=== PATIENT | male | born 1965 | race American Indian/Alaskan Native ===

== ENCOUNTER → 2019-08-19 | Outpatient (CLI) | payer BC | END | disposition home or self-care (01) | LOC: SLR 11:00 | PROVIDERS: ATTEND Internal Medicine | DX: G47.33 Obstructive sleep apnea (adult) (pediatric) (principal) | CPT/HCPCS: 95810 ==

== ENCOUNTER 2019-09-07 11:00 | Outpatient (CLI) | payer BC | END 2019-09-07 11:01 | disposition home or self-care (01) | LOC: SLR 11:00 | PROVIDERS: ATTEND Internal Medicine | DX: G47.33 Obstructive sleep apnea (adult) (pediatric) (principal); R40.0 Somnolence | CPT/HCPCS: 95811 ==

== ENCOUNTER 2019-10-28 07:13 | Day surgery (SDC) | payer BC ==
--- NOTE | 2019-10-28 08:20 | Anesthesia Day of Surgery ---
Anesthesia Day of Surgery - Day of Surgery Patient Examined: Yes Patient H&P Reviewed: Yes Patient is NPO: Yes
--- NOTE | 2019-10-28 08:20 | Anesthesia Consultation ---
Anesthesia Consult and Med Hx Date of service: 10/28/19 - Airway Anesthetic Teeth Evaluation: Good ROM Head & Neck: Adequate Mental/Hyoid Distance: Adequate Mallampati Class: Class III - Pre-Operative Health Status ASA Pre-Surgery Classification: ASA3 Proposed Anesthetic Plan: MAC - Pulmonary Hx Sleep Apnea: Yes (uses CPAP) - Other Systems Hx Obesity: Yes (BMI 30.5)
[2019-10-28] MEDS: SODIUM CHLORIDE 0.9% 1000 ML 1,000 ML IV SCH ×2 (08:37→08:53)
[2019-10-28] MEDS ORDERED: LIDOCAINE MPF (2%) 20 MG/1 ML VIAL 5 ML ONE (09:00)
[2019-10-28] MEDS ORDERED: propofoL 200 MG/20 ML VIAL IV ONE (09:09)
--- NOTE | 2019-10-28 09:58 | Procedure Note ---
Date of procedure: 10/28/19 Pre-op diagnosis: Colon Polyp Screening Post-op diagnosis: other (Solitary,Ascending Colon Polyp (removed by Cold,Snare Polypectomy- removed but not retrieved)) Procedure: Colonoscopy with Cold, Snare Polypectomy Anesthesia: MAC Surgeon: RENEA RODRIGUEZ Estimated blood loss: minimal Pathology: list Specimen disposition: to lab Condition: stable Disposition: same day (Avoid aspirin and NSAID for 4 days; otherwise resume home medication. Follow up in 1 to 2 weeks ([phone]).)
--- NOTE | 2019-10-28 10:04 | Operative Report ---
PROCEDURE: Colonoscopy with cold snare polypectomy. INDICATIONS: This is a 54-year-old -[place] gentleman who had come for colonoscopy as part of colon polyp screening. The patient has an underlying history of sleep apnea. DESCRIPTION OF PROCEDURE: The procedure was done after getting informed consent with MAC anesthesia. Initial rectal exam was unremarkable. Instrument was passed through the rectum onto the cecum, which was identified with ileocecal valve and appendiceal orifice. The cecum showed normal mucosa. There were a 9-10 mm polyp noted in the ascending colon that was removed by cold snare polypectomy, but could not be retrieved. There was minimal bleeding from the polypectomy site. The remaining part of the ascending colon, the transverse colon, descending colon, and sigmoid likewise showed normal mucosa. There was no evidence of any additional polyps, colitis or diverticular disease and the rectum appeared normal on the retroverted view. ASSESSMENT: Colon polyp screening, solitary ascending colon polyp removed, but not retrieved. No internal hemorrhoid. PLAN: Plan is to have the patient avoid aspirin and aspirin-related products for the next few days. Follow up in the office in 1-2 weeks' time. Otherwise, besides aspirin and aspirin-related products, resume home medication. The procedure was done in the GI lab with assistance of the GI lab team and with assistance of PHIL Oleary and Greg abreu and with assistance of anesthesia. Since the patient had a lot of movement secondary to his sleep apnea, it was difficult to retrieve the polyp even though the polyp was removed by cold snare polypectomy. JOB# [id number] PIA/JEANNIE
[2019-10-28 10:44] VITALS: BP 133/62
--- NOTE | 2019-10-28 11:43 | Post Anesthesia Evaluation ---
- Post Anesthesia Evaluation Patient Participated: Yes Airway Patent: Yes Stable Respiratory Function: Yes Nausea/Vomiting: No Temp > 96.8F: Yes Pain Manageable: Yes Adequeate Hydration: Yes Anesthesia Complications: No Block Receding Appropriately: Not Applicable Patient on Ventilator: No
== END 2019-10-28 07:14 | disposition home or self-care (01) ==
LOC: GIO 07:13
DX: Z12.11 Encounter for screening for malignant neoplasm of colon (principal); K63.5 Polyp of colon; G47.30 Sleep apnea, unspecified; E66.9 Obesity, unspecified; Z80.8 Family history of malignant neoplasm of other organs or systems; Z68.30 Body mass index [BMI] 30.0-30.9, adult
CPT/HCPCS: 45385; J2704; J7030

== ENCOUNTER 2020-03-16 14:41 | Outpatient (CLI) | payer BC ==
--- NOTE | 2020-03-16 16:08 | XRay Report ---
Lumbar spine 3 views INDICATION: Low back pain IMPRESSION: No acute fracture or subluxation identified. Mild L5-S1 facet arthropathy with minimal to mild neural foraminal narrowing at this level bilaterally. Signer Name: Seng Flowers MD Signed: 03/16/2020 4:04 PM Workstation Name: [id number]
== END 2020-03-16 14:42 | disposition home or self-care (01) ==
LOC: XRAY 14:41
PROVIDERS: ATTEND Internal Medicine
DX: M47.817 Spondylosis without myelopathy or radiculopathy, lumbosacral region (principal); M48.07 Spinal stenosis, lumbosacral region
CPT/HCPCS: 72100

== ENCOUNTER 2020-07-30 09:37 | Outpatient (CLI) | payer BC ==
[2020-07-30 10:07] LABS: Hematocrit 44.4 % (35.5-45.6); Hemoglobin 14.9 gm/dl (11.8-15.2); Mean Corpuscular HGB Conc 34 % (32-34); Mean Corpuscular Volume 89 fl (84-94); Platelet Count 213 K/mm3 (140-440); Red Blood Count 4.99 M/mm3 (3.65-5.03); Red Cell Distribution Width 13.8 % (13.2-15.2)
[2020-07-30 10:35] LABS: Alanine Aminotransferase 19 units/L (7-56); Albumin 4.4 g/dL (3.9-5); BUN/Creatinine Ratio 10; Blood Urea Nitrogen 11 mg/dL (9-20); Calcium 9.4 mg/dL (8.4-10.2); Chol/HDL Ratio 3.27 %; HDL Cholesterol 47 mg/dL (40-59); Hemolysis Index 5; LDL Cholesterol,Direct 108 mg/dL (50-130)
[2020-07-30 12:23] LABS: Total Cells Counted 100
[2020-07-30 12:24] LABS: Platelet Estimate Consistent w Auto; RBC Morphology Normal
== END 2020-07-30 09:38 | disposition home or self-care (01) ==
LOC: LAB 09:37
PROVIDERS: ATTEND Internal Medicine
DX: Z00.00 Encounter for general adult medical examination without abnormal findings (principal); Z13.220 Encounter for screening for lipoid disorders; E05.90 Thyrotoxicosis, unspecified without thyrotoxic crisis or storm; R73.03 Prediabetes; R39.11 Hesitancy of micturition; E55.9 Vitamin D deficiency, unspecified
CPT/HCPCS: 36415; 80053; 80061; 82306; 83036; 84153; 84443; 85007; 85025

== ENCOUNTER 2020-12-27 09:04 | Outpatient (CLI) | payer BC ==
[2020-12-27 09:45] LABS: Chol/HDL Ratio 3.61 %
== END 2020-12-27 09:05 | disposition home or self-care (01) ==
LOC: LAB 09:04
PROVIDERS: ATTEND Internal Medicine
DX: E11.9 Type 2 diabetes mellitus without complications (principal); E78.5 Hyperlipidemia, unspecified; E05.90 Thyrotoxicosis, unspecified without thyrotoxic crisis or storm
CPT/HCPCS: 36415; 80061; 83036; 84443

== ENCOUNTER 2021-08-05 08:20 | Outpatient (CLI) | payer BC ==
[2021-08-05 09:27] LABS: Basophils % (Auto) 0.8 % (0.0-1.8); Eosinophils # (Auto) 0.1 K/mm3 (0.0-0.4); Eosinophils % (Auto) 2.7 % (0.0-4.3); Hematocrit 45.6 % (35.5-45.6); Hemoglobin 14.6 gm/dl (11.8-15.2); Lymphocytes # (Auto) 1.7 K/mm3 (1.2-5.4); Lymphocytes % (Auto) 51.2 % (13.4-35.0); Mean Corpuscular HGB Conc 32 % (32-34); Mean Corpuscular Volume 88 fl (84-94); Monocytes # (Auto) 0.3 K/mm3 (0.0-0.8); Monocytes % (Auto) 7.7 % (0.0-7.3); Platelet Count 218 K/mm3 (140-440); Red Blood Count 5.16 M/mm3 (3.65-5.03); Red Cell Distribution Width 13.6 % (13.2-15.2)
[2021-08-05 09:48] LABS: Alanine Aminotransferase 20 units/L (7-56); Albumin 4.6 g/dL (3.9-5); BUN/Creatinine Ratio 19; Blood Urea Nitrogen 19 mg/dL (9-20); Calcium 9.5 mg/dL (8.4-10.2); Chol/HDL Ratio 3.72 %; HDL Cholesterol 48 mg/dL (40-59); Hemolysis Index 5; LDL Cholesterol,Direct 119 mg/dL (50-130)
[2021-08-05 11:26] LABS: Creatinine,Urine 130.6 mg/dL (0.1-20.0)
[2021-08-05 11:31] LABS: Microalbumin/Creatinine Ratio 9.1 ug/mg
== END 2021-08-05 08:21 | disposition home or self-care (01) ==
LOC: LAB 08:20
PROVIDERS: ATTEND Internal Medicine
DX: Z00.00 Encounter for general adult medical examination without abnormal findings (principal); E55.9 Vitamin D deficiency, unspecified; R39.11 Hesitancy of micturition; E05.90 Thyrotoxicosis, unspecified without thyrotoxic crisis or storm; E78.5 Hyperlipidemia, unspecified; E11.9 Type 2 diabetes mellitus without complications
CPT/HCPCS: 36415; 80053; 80061; 82043; 82306; 83036; 84153; 84443; 85025

== ENCOUNTER 2021-12-19 09:04 | Outpatient (CLI) | payer BC ==
[2021-12-19 12:43] LABS: Chol/HDL Ratio 3.95 %
== END 2021-12-19 09:05 | disposition home or self-care (01) ==
LOC: LABHHL 09:04
PROVIDERS: ATTEND Internal Medicine
DX: E11.9 Type 2 diabetes mellitus without complications (principal); E78.5 Hyperlipidemia, unspecified
CPT/HCPCS: 36415; 80061; 83036

== ENCOUNTER 2022-01-10 06:46 | Outpatient (CLI) | payer BC ==
[2022-01-10 09:21] LABS: Blood Urea Nitrogen 20 mg/dL (9-20)
--- NOTE | 2022-01-10 11:36 | Cat Scan Report ---
CT CHEST WITH CONTRAST INDICATION / CLINICAL INFORMATION: SOLITARY PULMONARY NODULE. TECHNIQUE: Axial CT images were obtained through the chest after 100 mL Omnipaque [address] IV contrast. Al l CT scans at this location are performed using CT dose reduction for ALARA by means of automated exp osure control. COMPARISON: None available. FINDINGS: HEART: No significant abnormality. CORONARY ARTERY CALCIFICATION: Absent -- None. THORACIC AORTA: No significant abnormality. MEDIASTINUM / ALIRIO: No significant abnormality. PLEURA: No pleural effusion. No pneumothorax. LUNGS: No acute air space or interstitial disease. No pulmonary nodule. ADDITIONAL FINDINGS: External panel monitor along the anterior chest wall. UPPER ABDOMEN: No significant abnormality. SKELETAL SYSTEM: No significant abnormality. IMPRESSION: 1. No acute process in the chest. 2. No pulmonary nodule. Signer Name: James Gongora MD Signed: 01/10/2022 11:31 AM Workstation Name: [id number]
== END 2022-01-10 06:47 | disposition home or self-care (01) ==
LOC: ECHO 06:46
PROVIDERS: ATTEND Internal Medicine
DX: I37.1 Nonrheumatic pulmonary valve insufficiency (principal); I48.91 Unspecified atrial fibrillation; R91.1 Solitary pulmonary nodule
CPT/HCPCS: 36415; 71260; 82565; 84520; C8929; Q9967; 93306

== ENCOUNTER 2022-02-09 09:39 | Outpatient (CLI) | payer BC ==
--- NOTE | 2022-02-09 23:06 | Treadmill Report ---
DATE OF SERVICE: 02/09/2022 TREADMILL STRESS TEST REFERRING PHYSICIAN: Dr. Juan Carlos Johnson. 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 PROCEDURE IN DETAIL: The patient was brought to the stress lab in a postabsorptive state, exercised on a standard protocol treadmill. Resting blood pressure is 129/80, resting heart rate 65. The patient exercised for a total of 10 minutes and 30 seconds to achieve 90% of target heart rate. Maximum heart rate was 148. Peak blood pressure is 167/90. There were no diagnostic ST changes, chest pain or arrhythmias during stress or recovery. The patient tolerated the procedure well and did great. CONCLUSIONS: 1. Normal exercise treadmill stress test without evidence of diagnostic ST changes, arrhythmias or chest pain during stress or recovery. 2. Average exercise tolerance. 3. Appropriate heart rate/blood pressure response in recovery. TID: [id number] RECEIPT: [id number] SBM/HELIO
--- NOTE | 2022-02-10 10:52 | Treadmill Report ---
[facility] Test Date: 2022-02-09 Test Time: 11:18:00 Pat Name: MARA CHAVEZ Department: Room: Gender: M Typewriter Tester: Sherri Bond : 1965 Requested By: RIGOBERTO ORTIZ Order Number: [id number] Reading MD: Bebo Crawley Interpretive Statements Electronically Signed On 02-10-2022 10:51:52 EDT by Bebo Crawley
== END 2022-02-09 09:40 | disposition home or self-care (01) ==
LOC: CARD 09:39
PROVIDERS: ATTEND Internal Medicine Cardiovascular Disease
DX: I48.91 Unspecified atrial fibrillation (principal); E11.9 Type 2 diabetes mellitus without complications; E78.2 Mixed hyperlipidemia
CPT/HCPCS: 93017